=== PATIENT | female | born 1935 | race Caucasian/White ===

== ENCOUNTER 2017-10-02 05:41 | Day surgery (SDC) | payer MEDICARE, OTHER, MEDICAID ==
[2017-10-02] MEDS: TROPICAMIDE 1% 3 ML OPH OPER (06:31)
[2017-10-02] MEDS: CYCLOPENTOLATE/PHENYLEPH 2 ML OPH OPER (06:31)
[2017-10-02] MEDS: DICLOFENAC 0.1% 2.5 ML OPH OPER (06:31)
[2017-10-02] MEDS: MOXIFLOXACIN 0.5% 3 ML OPH OPER (06:31)
[2017-10-02] MEDS ORDERED: LIDOCAINE 4% (MPF) 5 ML INJ (06:48)
[2017-10-02] MEDS: DEXAMETHASONE 4 MG/ML 1 ML INJ (06:49)
[2017-10-02] MEDS ORDERED: GENTAMICIN 80 MG INJ (06:49)
[2017-10-02] MEDS ORDERED: LIDOCAINE 1% (MPF) 10 ML INJ (06:49)
[2017-10-02] MEDS ORDERED: EPINEPHrine 1 MG INJ (06:49)
[2017-10-02] MEDS ORDERED: TETRACAINE 0.5% 4 ML OPH (06:49)
[2017-10-02] MEDS: CEFAZOLIN 1 GM INJ (06:49)
[2017-10-02] MEDS: CARBACHOL 0.01% 1.5 ML OPH INJ (06:49)
[2017-10-02] MEDS: SOD CHLORIDE 0.9% 1,000 ML IV (06:51)
[2017-10-02] MEDS ORDERED: ACETAMINOPHEN 1000MG/100ML IV 100 ML IVPB (07:30)
[2017-10-02] MEDS ORDERED: ALBUTEROL 0.083% (NEB) 2.5 MG/3 ML AMP HHN (07:30)
[2017-10-02] MEDS ORDERED: DIPHENHYDRAMINE 50 MG INJ IV (07:30)
[2017-10-02] MEDS ORDERED: LABETALOL HCL 20MG INJ IV (07:30)
[2017-10-02] MEDS ORDERED: hydrALAzine 20 MG INJ IV (07:30)
[2017-10-02] MEDS ORDERED: ONDANSETRON 4 MG INJ IV (07:30)
[2017-10-02] MEDS ORDERED: LABETALOL HCL 20MG INJ (07:42)
[2017-10-02] MEDS ORDERED: hydrALAzine 20 MG INJ (08:05)
[2017-10-02] MEDS ORDERED: PROPOFOL 20 ML (08:08)
[2017-10-02] MEDS ORDERED: LIDOCAINE 2% (SDV) 5 ML INJ (08:08)
== END 2017-10-02 09:35 | disposition home or self-care (01) ==
LOC: SDS 05:41
DX: H25.11 Age-related nuclear cataract, right eye (principal); E11.9 Type 2 diabetes mellitus without complications; I10 Essential (primary) hypertension; Z79.84 Long term (current) use of oral hypoglycemic drugs; E78.00 Pure hypercholesterolemia, unspecified; Z79.82 Long term (current) use of aspirin
CPT/HCPCS: 66984; 82962